=== PATIENT | female | born 1995 | race Caucasian/White ===

== ENCOUNTER 2022-05-04 15:16 | Emergency (ER) | payer OTHER ==
[~2022-05-04] VITALS: Ht 154.9 cm; Wt 78.9 kg
[2022-05-04 15:46] VITALS: BP 129/80
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
[2022-05-04] MEDS ORDERED: IBUP-2213 PO (16:40)
[2022-05-04] MEDS ORDERED: METH-1681 PO (16:40)
[2022-05-04 17:07] VITALS: BP 129/80
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
== END 2022-05-04 17:07 | disposition home or self-care (01) ==
LOC: MED 15:16
DX: S46.811A Strain of other muscles, fascia and tendons at shoulder and upper arm level, right arm, initial encounter (principal); M54.2 Cervicalgia; Z79.899 Other long term (current) drug therapy; V89.2XXA Person injured in unspecified motor-vehicle accident, traffic, initial encounter; Y93.89 Activity, other specified; Y92.488 Other paved roadways as the place of occurrence of the external cause; Y99.8 Other external cause status
CPT/HCPCS: 99283